=== PATIENT | female | born 1970 | race Caucasian/White ===

== ENCOUNTER 2020-02-15 16:28 | Emergency (ER) | payer BC, OTHER ==
[~2020-02-15] VITALS: Ht 162.6 cm; Wt 62.6 kg
[~2020-02-15 16:28] MED LIST: COUGH & CHEST177 ML PO; MACROBID 100 M100 M1 PO; MOBIC15 MG PO; PHENAZOPYRIDIN200 M2 PO; PREDNISONE 20 M20 MG PO
[2020-02-15] MEDS ORDERED: NAPROSYN500 MG PO (18:01)
[2020-02-15 18:10] VITALS: BP 123/60
[2020-02-15] MEDS ORDERED: CEPACOL SORE T1 EAC8 PO (18:15)
== END 2020-02-15 18:10 | disposition home or self-care (01) ==
LOC: ER 16:28
DX: R50.9 Fever, unspecified (principal); Z20.828 Contact with and (suspected) exposure to other viral communicable diseases; J02.9 Acute pharyngitis, unspecified; Z79.899 Other long term (current) drug therapy